=== PATIENT | male | born 2000 | race Caucasian/White ===

== ENCOUNTER → 2019-09-07 09:39 | Outpatient (CLI) | payer OTHER, SELFPAY ==
--- NOTE | 2019-09-07 | PATH_ITS ---
[facility] Accession Number: [id number] . 01 Material submitted: . groin - LEFT GROIN LYMPH NODE . 01 Clinical history: . LEFT GROIN LYMPHADENOPATHY . 01 Diagnosis: Lymph node, left inguinal, core needle biopsy: --- Negative for immunohistochemical evidence of lymphoma --- Negative for active inflammation and carcinoma --- Clinical correlation is requested --- See comment [facility] 09/11/2019 1426 Local . 01 Comment: There is no immunohistochemical evidence of aberrant antigen expression and no morphologic evidence of an atypical cell population. For the definitive diagnosis of lymphoproliferative disorders, core needle biopsies do not afford sufficient tissue for a complete evaluation of the michaelle architecture; similarly, disease distribution in lymph nodes is not always complete throughout the node. If clinical suspicion is high, an excisional biopsy might be considered for definitive diagnosis. If such instrumentation is undertaken, consider submitting a portion of the specimen for flow cytometric analysis. . . 01 Electronically signed: . Hortencia Phelps MD, Pathologist NPI- [id number] . 01 Gross description: . LEFT GROIN LYMPH NODE : Received in formalin are multiple fragment(s) of batres, soft tissue measuring 0.1 x 0.1 x 0.1 cm to 0.6 x 0.1 x 0.1 cm submitted entirely in 1 cassette(s) /[facility] 09/07/20192021 Local . 01 Microscopic: . H/E levels demonstrate fragments of lymphoid tissue compatible with a needle core biopsy. The lymphoid components comprise predominately small, mature appearing lymphoid cells. Focal interstitial hemorrhage is noted and is interpreted as instrumentational. There is no evidence of active inflammation, granuloma or sheets/clusters of large or atypical cells. There is no evidence of Gurinder-Delicia or Hodgkin-cells. There is no evidence of carcinoma. . In order to more fully characterize this process, immunohistochemical stains were indicated. The controls reacted appropriately. See below for Laboratory information. Findings: CD3: Many small T-cells present, demarcating follicles (negative); cytoplasmic/strong. CD5: Many small T-cells present, demarcating follicles (negative); cytoplasmic/strong. PAX5: Many small lymphoid cells, most in the follicles; nuclear/strong CD10: Germinal centers positive, membranous/moderate BCL2: Germinal centers negative; nuclear/strong BCL6: Germinal centers positive; nuclear/strong CyclinD1: Negative Ki67: highly positive in germinal centers (>60%) and less positivity in non-germinal center tissue ( 15%); nuclear/strong. Interpretation: . Technical Note: The immunohistochemistry stains reported were performed at [facility] ([address] [place], [place] [address]e [address], [facility] [address]). They were developed and their performance characteristics determined by [employer] They have not been cleared or approved by the U.S. Food and Drug Administration, although such approval is not required for analyte-specific reagents of this type. . 01 Pathologist provided ICD-10: R59.9 . 01 CPT . 537142, [id number], A62020, 077249 Performed at: 01 [facility] [address], [place], [place] [id number] MD Vamsi Rogers MD Phone: [phone]
--- NOTE | 2019-09-07 09:41 | DI.US.S_ITS ---
PROCEDURE: US BIOPSY LYMPH NODE INDICATIONS: ENLARGED LEFT GROIN LYMPH NODE TECHNIQUE: The indications, alternatives, benefits, risks, and complications of the procedure were explained to the patient. Written informed consent was obtained and placed in the chart. Real-time sonography was utilized to choose the site for percutaneous lymph node sampling. The skin was prepped and draped in the usual sterile fashion. 1% lidocaine was infiltrated down to the site of interest. A coaxial needle was then advanced into the site of interest under direct sonographic visualization. A biopsy apparatus was then utilized, and core biopsies were obtained. The needle was then withdrawn; a bandage was applied to the biopsy site. COMPARISON: None. FINDINGS: Biopsy site(s): Dominant left inguinal lymph node measuring 3.8 x 1.2 x 1.8 cm Needle: Sampa biopsy needle set. Number of passes: 3 Medications: 1% lidocaine for local anaesthesia. Complications: None. IMPRESSION: Successful ultrasound-guided left inguinal lymph node biopsy, with pathology results pending. Dictated by: Quincy Au M.D. on 09/07/2019 at 13:32 Approved by: Quincy Au M.D. on 09/07/2019 at 13:33
== END ==
PROVIDERS: Family Provider Nurse Practitioner Family; PCP Nurse Practitioner Family; Visit Provider Surgery
DX: R59.0 Localized enlarged lymph nodes (principal)
CPT/HCPCS: 38505; 76942